=== PATIENT | male | born 1960 | race Caucasian/White ===

== ENCOUNTER → 2024-03-03 07:43 | Outpatient (REF) | payer MEDICARE, BC, SELFPAY | LOC: RCS 07:43 | PROVIDERS: ATTENDING PHYSICIAN Family Medicine | DX: R00.2 Palpitations (principal) | CPT/HCPCS: 93225; 93226 ==

== ENCOUNTER → 2024-11-23 07:52 | Outpatient (REF) | payer MEDICARE, BC, SELFPAY | LOC: HWRAD 07:52 | PROVIDERS: ATTENDING PHYSICIAN Family Medicine | DX: Z87.891 Personal history of nicotine dependence (principal); Z13.6 Encounter for screening for cardiovascular disorders | CPT/HCPCS: 76770 ==